=== PATIENT | male | born 1955 | race Caucasian/White ===

== ENCOUNTER 2019-06-06 05:17 | Day surgery (SDC) ==
--- NOTE | 2019-05-30 14:56 | EKG Report ---
Test Performed on : 05/30/2019 2:48:50 PM Test Reason : PAT Blood Pressure : / mmHG Vent. Rate : 081 BPM Atrial Rate : 093 BPM P-R Int : 000 ms QRS Dur : 100 ms QT Int : 358 ms P-R-T Axes : 000 133 025 degrees QTc Int : 415 ms Atrial fibrillation. Right axis deviation Incomplete right bundle branch block Possible Right ventricular hypertrophy Abnormal ECG When compared with ECG of 27-MAR-2016 11:17, No significant change was found Confirmed by Lyn Nicole MD ([id number]) on 05/30/2019 4:16:00 PM
[2019-05-30 15:12] LABS: HEMATOCRIT 40.4 % (42.0-52.0); HEMOGLOBIN 13.5 g/dL (14.0-18.0); MCH 31.9 PG (27-31); MCHC 33.4 g/dL (33-37); MCV 95.5 FL (81-99); MPV 10.7 FL (7.4-10.4); RBC 4.23 XMIL (4.7-6.1); RDW 12.9 % (11.5-14.5); WBC 8.57 X1000 (4.8-10.8)
[2019-05-30 16:02] LABS: AGAP 12; BUN 12 mg/dL (8-22); CALCIUM 8.6 mg/dL (8.8-10.2); CHLORIDE 108 mmol/L (98-107); COSMO 290; CREATININE 1.2 mg/dL (0.7-1.2); ESTIMATED GFR > 60; GLUCOSE 94 mg/dL (70-104); POTASSIUM 4.1 mmol/L (3.5-5.1); SODIUM 146 mmol/L (136-145); TCO2 26 mmol/L (25-35)
[2019-06-06] MEDS ORDERED: LR 1,000 ML ONE ×2 (05:48→06:26)
[2019-06-06] MEDS ORDERED: PEPCID ONE (05:48)
[2019-06-06] MEDS ORDERED: KEFZOL 1 GM/D5W 2 GM/100 ML IVPB ONE (05:48)
[2019-06-06] MEDS ORDERED: REGLAN ONE (05:48)
[2019-06-06] MEDS ORDERED: TENORMIN PO ONE (05:58)
[2019-06-06] MEDS ORDERED: TENORMIN ONE (06:02)
[2019-06-06] MEDS ORDERED: B & O 16A SUPP ONE (06:26)
[2019-06-06] MEDS ORDERED: SENSORCAINE-MPF 0.5%/EPI 1:200,000 ONE (06:26)
[2019-06-06] MEDS ORDERED: DIPRIVAN 1% ONE (06:27)
[2019-06-06] MEDS ORDERED: XYLOCAINE-MPF 2% ONE (07:39)
[2019-06-06] MEDS ORDERED: ZEMURON ONE ×2 (07:39→10:30)
[2019-06-06 08:55] LABS: URINE SOURCE CATH
[2019-06-06 09:02] LABS: BILIRUBIN URINE NEGATIVE (NEGATIVE); BLOOD URINE NEGATIVE (NEGATIVE); COLOR YELLOW; GLUCOSE URINE NEGATIVE (NEGATIVE); KETONE URINE NEGATIVE (NEGATIVE); LEUKOCYTES URINE NEGATIVE (NEGATIVE); NITRITE URINE NEGATIVE (NEGATIVE); PROTEIN URINE TRACE mg/dL (NEGATIVE); SP GRAVITY URINE 1.022; TURBIDITY URINE CLEAR (CLEAR); UROBILINOGEN URINE NORMAL (NORMAL)
[2019-06-06 09:04] LABS: UR EPITHELIAL CELLS <10 /HPF (<10); URINE BACTERIA NEGATIVE /HPF; URINE RBC <10 /HPF (<10); URINE WBC <10 /HPF (<10)
[2019-06-06] MEDS ORDERED: OFIRMEV 1000 MG/ISOTONIC SOLN 1,000 MG/100 ML BOTTLE ONE (09:12)
[2019-06-06] MEDS ORDERED: DECADRON ONE (10:38)
[2019-06-06] MEDS ORDERED: ZOFRAN ONE (10:38)
[2019-06-06] MEDS ORDERED: ROBINUL ONE (10:42)
[2019-06-06] MEDS ORDERED: NEOSTIGMINE ONE (10:43)
[2019-06-06] MEDS ORDERED: LASIX ONE ×2 (10:58→13:37)
[2019-06-06] MEDS ORDERED: DILAUDID ONE (11:05)
[2019-06-06] MEDS ORDERED: SODIUM CHLORIDE 0.9% ONE (11:14)
[2019-06-06] MEDS ORDERED: NS 1,000 ML ONE (11:47)
[2019-06-06] MEDS ORDERED: DITROPAN ONE (11:47)
[2019-06-06] MEDS ORDERED: D50W SYRINGE IV PRN (12:45)
[2019-06-06] MEDS ORDERED: MORPHINE IV PRN (13:05)
[2019-06-06] MEDS ORDERED: OXY IR PO PRN ×2 (13:15)
[2019-06-06] MEDS ORDERED: OFIRMEV 1000 MG/ISOTONIC SOLN 1,000 MG/100 ML BOTTLE IV PRN (13:15)
[2019-06-06] MEDS ORDERED: BENADRYL LIQUID PO PRN (13:15)
[2019-06-06] MEDS ORDERED: DITROPAN PO PRN (13:15)
[2019-06-06] MEDS ORDERED: LABETALOL IV PRN (13:15)
[2019-06-06] MEDS ORDERED: SODIUM CHLORIDE 0.9% INJ PRN (13:15)
[2019-06-06] MEDS ORDERED: PHENERGAN IV PRN (13:15)
--- NOTE | 2019-06-06 13:43 | OPERATIVE NOTE ---
PROCEDURE DATE: 06/06/2019 PROCEDURE PERFORMED: 1. Laparoscopic robot-assisted radical retropubic prostatectomy. 2. Modified bilateral pelvic lymph node dissection. ANESTHESIA: General endotracheal. FINDINGS: 1. Normal-appearing prostate with attached seminal vesicles and vas deferens. 2. Normal appearing obturator lymph nodes bilaterally. INDICATION FOR PROCEDURE: This 63-year-old male has a history of elevated PSA. 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 DESCRIPTION OF PROCEDURE: After informed consent was obtained from the patient and him receiving IV antibiotics, he was taken to the main OR, and placed in the supine position. General anesthesia via laryngeal mask was achieved. He was then prepped and draped in the usual sterile fashion for abdominal, penile and perineal surgery. A 16-[place] Machuca catheter was passed through the patient's urethra, prostate, and in the bladder without difficulty. 10 mL sterile water were placed in the Machuca's balloon. Machuca was placed to gravity drain. Pneumoperitoneum was achieved with the Veress needle by placing it through the soon to be camera port just above the umbilicus. After pneumoperitoneum was achieved, the Visiport was used to place the 12 mm trocar after the 12 mm trocar was placed the camera was placed and the robot trocars were placed in the standard position with the 4th arm just above the right anterior superior iliac spine. The #2 arm 1 and a half handbreadths lateral to the camera port just below the umbilicus. The #1 arm placed 1 handbreadth to the right of midline just below the umbilicus. The child life assistant port was placed in the left epigastric area which was also a 12 mm port. After the ports were placed the patient was placed in steep Trendelenburg and the table lowered all the way down. The robot was docked. The patient had physiologic adhesions of the left colon and these were taken down sharply. The 4th arm was then used to retract the sigmoid colon cephalad. An incision was made as the peritoneum reflected off the colon onto the anterior abdominal wall about 2 cm up. This was dissected back to the seminal vesicles and vas deferens. These were bluntly and sharply dissected free. The vas deferens was incised with the electrocautery as well as the artery to the vas. The pedicle to the seminal vesicles was clipped at the tips of the seminal vesicles and then cut back to the base of the prostate using sharp dissection as well as the electrocautery. Both sides were accomplished similarly. Denonvilliers fascia was entered at the base of the prostate just below the seminal vesicles. Attention was then turned to the anterior abdominal wall where an incision was made just medial to the internal inguinal ring. This was incised up along side the medial umbilical ligament. Both sides were accomplished similarly. The medial umbilical ligaments were incised on the anterior abdominal wall as well as the median umbilical ligament. The bladder was dropped off the anterior abdominal wall with blunt and sharp dissection. This was dissected down to the endopelvic fascia where all fibrofatty tissue was removed from the anterior and lateral sides of the prostate. The endopelvic fascia was entered lateral to the prostate. The incision was dissected up to the puboprostatic ligaments and back to the base of the prostate. The levator ani muscles were bluntly pushed off the sides of the prostate. The puboprostatic ligament was taken down sharply. Again both sides were accomplished similarly. The dorsal vein complex was ligated by placing a #2 V-Loc suture under the vein complex but anterior to the urethra and then passed back under the dorsal vein complex, anterior to the urethra then through the periosteum of the pubis, back under the dorsal vein complex, and then back through the periosteum of the pubis. The needle was then removed and passed off the field. The bladder neck area was inspected and then incised sharply dissecting the bladder off the base of the prostate. The bladder was entered just at the base of the prostate and the Machuca catheter was visualized. It was pulled back and then through the cystotomy and grasped and used as a retractor. The bladder was then sharply off the remainder of the prostate down to the previously dissected space of the seminal vesicles and ampulla vas deferens. The vas deferens and ampulla of the vas deferens were brought up through this incision and the bladder was completely removed from the prostate using clips on each side. The pedicles to the prostate were taken down with clips and the prostate was bluntly and sharply dissected back to the apex of the prostate. The dorsal vein complex at the apex of the prostate was cauterized and incised freeing the apex of the prostate from the dorsal vein complex. The urethra was incised and the Machuca catheter pulled back and the posterior urethra was incised all the way through to the posterior rhabdosphincter, and this was sharply incised. The prostate was then left in the pelvis. The modified pelvic lymph node was performed by incising the tissue on the medial side of the external iliac vein going down the inside of the pubic bone to the obturator nerve. The loc tissue was dissected cephalad up the obturator nerve to where the internal and external iliac veins bifurcated. Lymphostasis and hemostasis was achieved with clips and cautery. The specimen was passed off of the field. The right side was accomplished similarly. The right specimen was placed in the Endo Catch retrieval bag with the prostate. Surgicel SNoW was then packed in the dissected areas of the node dissection. The vesicovisceral fascia was reapproximated to the posterior rhabdosphincter with a running suture of 3-0 V-Loc suture. The bladder was anastomosed to the urethra with a running 3-0 V-Loc suture. The anastomosis was done with a double armed 3-0 V-Loc suture and the ends were tied together to complete the anastomosis. A Machuca catheter easily was easily placed. The bladder was distended to 60 mL. No leakage was seen. The Machuca was placed to gravity drain. The suture that was used to anastomose the vesicovisceral fascia to the posterior rhabdomyolysis sphincter had the needles left on the suture and it was passed through the periosteum of the pubis on the left side and the right side. This acts as a urethral suspension. These needles were then removed and passed off the field. The anastomosing needles were also removed and passed off the field. All needle counts were correct. The Endo Catch retrieval bag string was brought out through the camera port. Pneumoperitoneum was resolved. The table was returned to the supine position. The robot trocars were removed. The camera port incision was extended to a total of about 4 cm and the Endo Catch retrieval bag with the prostate and right obturator nodes were brought out without difficulty. The abdominal rectus fascia was reapproximated with interrupted suture of #1 Maxon. The skin was reapproximated with clips. He tolerated the procedure well. Estimated blood loss 200 mL. He was extubated and taken to the recovery room in good condition. A 16-A B and O suppository was placed prior to the patient leaving the room. cc: Grayson Granados MD
[2019-06-06] MEDS: HUMULIN R SUBQ SCH ×3 (14:37→23:29)
[2019-06-06] MEDS: KEFZOL 2 GM/D5W 2 GM/50 ML IVPB IV SCH ×2 (14:38→23:25)
[2019-06-06] MEDS: NS 1,000 ML IV SCH (14:38)
[2019-06-06] MEDS ORDERED: FLU VACCINE IM ONE (18:52)
[2019-06-06] MEDS ORDERED: TENORMIN PO SCH (21:00)
[2019-06-06] MEDS ORDERED: ZOCOR PO SCH (21:00)
[2019-06-06] MEDS ORDERED: LANOXIN PO SCH (21:00)
[2019-06-06] MEDS ORDERED: CITRACAL + D PO SCH (21:00)
[2019-06-06] MEDS ORDERED: COENZYME Q10 PO SCH (21:00)
[2019-06-06] MEDS: PEPCID PO SCH (23:24)
[2019-06-06] MEDS: PERIDEX MT SCH (23:24)
[2019-06-06] MEDS: COLACE PO SCH (23:25)
[2019-06-07] MEDS: HUMULIN R SUBQ SCH ×2 (06:45→11:18)
[2019-06-07] MEDS ORDERED: SYNTHROID PO SCH (07:00)
[2019-06-07 08:23] LABS: HEMATOCRIT 36.4 % (42.0-52.0); MCH 32.3 PG (27-31); MCV 97.8 FL (81-99); MPV 11.2 FL (7.4-10.4); RBC 3.72 XMIL (4.7-6.1); RDW 13.5 % (11.5-14.5); WBC 14.21 X1000 (4.8-10.8)
[2019-06-07] MEDS ORDERED: LASIX PO SCH (09:00)
[2019-06-07] MEDS ORDERED: VITAMIN D PO SCH (09:00)
[2019-06-07 09:13] LABS: AGAP 9; BUN 15 mg/dL (8-22); CALCIUM 8.5 mg/dL (8.8-10.2); CHLORIDE 108 mmol/L (98-107); COSMO 289; CREATININE 1.2 mg/dL (0.7-1.2); ESTIMATED GFR > 60; GLUCOSE 131 mg/dL (70-104); POTASSIUM 4.7 mmol/L (3.5-5.1); SODIUM 144 mmol/L (136-145); TCO2 27 mmol/L (25-35)
[2019-06-07] MEDS: COLACE PO SCH (09:52)
[2019-06-07] MEDS: PERIDEX MT SCH (09:52)
[2019-06-07] MEDS: PEPCID PO SCH (09:52)
[2019-06-07] MEDS: NS 1,000 ML IV SCH (09:57)
[2019-06-07 11:22] VITALS: BP 108/62
[2019-06-07] MEDS ORDERED: GLUCOPHAGE PO SCH (17:00)
== END 2019-06-07 13:34 | disposition home or self-care (01) ==
LOC: OR 05:17 → 4N 05:17 → OR 06-07 13:34
PROVIDERS: ATTEND Urology